=== PATIENT | female | born 1945 | race Caucasian/White ===

== ENCOUNTER → 2017-08-06 14:48 | Outpatient (CLI) | payer MEDICARE, OTHER, SELFPAY ==
--- NOTE | 2017-08-06 14:55 | XR_ITS ---
XR shoulder RT min 2V HISTORY: ITS.REASON: RT SHOULDER PAIN ORDERING PHYSICIAN: Timmy Alonzo MD PATIENT AGE: 72 years COMPARISON: FINDINGS: No fracture or dislocation. No lytic or blastic change. There is normal mineralization. The joint spaces are well-preserved. No significant degenerative/arthritic changes. No erosive changes evident. No significant subacromial stenosis IMPRESSION: Negative, no acute finding
== END ==
PROVIDERS: PCP Internal Medicine Adolescent Medicine; Visit Provider Internal Medicine Adolescent Medicine
DX: M25.511 Pain in right shoulder (principal)
CPT/HCPCS: 73030

== ENCOUNTER → 2018-11-04 16:47 | Outpatient (CLI) | payer MEDICARE, OTHER, SELFPAY ==
--- NOTE | 2018-11-04 16:55 | XR_ITS ---
XR foot LT min 3V HISTORY: ITS.REASON: LT FOOT PAIN ORDERING PHYSICIAN: Timmy Alonzo MD PATIENT AGE: 73 years COMPARISON: None FINDINGS: No fracture or dislocation. No lytic or blastic change. There is normal mineralization.. The joint spaces are well-preserved. No significant degenerative/arthritic changes. No erosive changes evident. IMPRESSION: Negative, no acute finding
== END ==
PROVIDERS: PCP Internal Medicine Adolescent Medicine; Visit Provider Internal Medicine Adolescent Medicine
DX: M79.672 Pain in left foot (principal)
CPT/HCPCS: 73630

== ENCOUNTER → 2018-12-04 13:59 | Outpatient (CLI) | payer MEDICARE, OTHER, SELFPAY | PROVIDERS: PCP Internal Medicine Adolescent Medicine; Visit Provider Internal Medicine Adolescent Medicine | DX: G47.30 Sleep apnea, unspecified (principal); I10 Essential (primary) hypertension; R40.0 Somnolence; R06.83 Snoring | CPT/HCPCS: G0399 ==

== ENCOUNTER → 2018-12-07 12:21 | Outpatient (CLI) | payer MEDICARE, OTHER, SELFPAY ==
--- NOTE | 2018-12-07 13:06 | XR_ITS ---
PROCEDURE: XR WRIST RT MIN 3V CLINICAL INDICATION: FALL RIGHT WRIST PAIN Posttraumatic pain COMPARISON: No exams were available for comparison FINDINGS: No definite acute fracture or dislocation is evident. There is a small calcific density anterior to the lunate on the lateral view and could represent periarticular calcification from degenerative change. There is some mild cystic changes in the lunate and there are osteoarthritic changes of the scapho trapezium joint IMPRESSION: No acute fracture. Degenerative changes Dictated by: Felice Galeano MD 12/07/2018 16:49 Electronically signed by Felice Galeano MD in [place] 12/07/2018 16:49
--- NOTE | 2018-12-07 13:06 | XR_ITS ---
PROCEDURE: XR KNEE RT 3V CLINICAL INDICATION: FALL RIGHT KNEE PAIN COMPARISON: No exams were available for comparison FINDINGS: No fracture or dislocation. No lytic or blastic change. There is normal mineralization. The joint spaces are well-preserved. No significant degenerative/arthritic changes. No erosive changes evident. Other findings:None. IMPRESSION: No acute findings. Dictated by: Felice Galeano MD 12/07/2018 16:49 Electronically signed by Felice Galeano MD in [place] 12/07/2018 16:49
--- NOTE | 2018-12-07 13:06 | XR_ITS ---
PROCEDURE: XR ELBOW RT MIN 3V CLINICAL INDICATION: RIGHT ELBOW PAIN Posttraumatic pain COMPARISON: No exams were available for comparison FINDINGS: No acute fracture or dislocation. Calcific density is present along both the lateral and medial epicondyle and may be due to old injuries. No displaced fat pad. Other findings:None. IMPRESSION: No acute finding. Old fractures versus old ligamentous injury at the medial and lateral epicondyle Dictated by: Felice Galeano MD 12/07/2018 16:47 Electronically signed by Felice Galeano MD in [place] 12/07/2018 16:47
== END ==
PROVIDERS: PCP Internal Medicine Adolescent Medicine; Visit Provider Internal Medicine Adolescent Medicine
DX: M25.531 Pain in right wrist (principal); M25.521 Pain in right elbow; M25.561 Pain in right knee; W19.XXXA Unspecified fall, initial encounter
CPT/HCPCS: 73080; 73110; 73562

== ENCOUNTER → 2019-12-06 14:42 | Outpatient (CLI) | payer MEDICARE, OTHER, SELFPAY ==
[2019-12-07 09:19] LABS: Covid-19 Nasal PCR Sendout UK Not Detected
== END ==
PROVIDERS: PCP Internal Medicine Adolescent Medicine; Visit Provider Nurse Practitioner
DX: Z03.818 Encounter for observation for suspected exposure to other biological agents ruled out (principal)
CPT/HCPCS: U0003

== ENCOUNTER 2020-02-05 12:58 | Emergency (ER) | payer MEDICARE, OTHER, SELFPAY ==
[2020-02-05 12:58] VITALS: BP 170/100; PULSE 84; RESP 17; TEMP 36.5; O2SAT 95; BMI 27.4
--- NOTE | 2020-02-05 13:16 | HMH.EDPSYCH ---
ED Disposition Clinical Impression: Depression Disposition: Home, Self-Care Condition on Discharge: Good Instructions: DI for Depression -- Adult Additional Instructions: Follow-up with therapist within the next 2 to 3 days for reevaluation. Return to the emergency department for any thoughts of hurting yourself or others. - Critical Care Critical Care Time: No Attestation: On 02/05/20, the high probability of a clinically significant, sudden or life threatening deterioration of the following system(s) required my full and direct attention, intervention and personal management. The time I documented below is in addition to time spent performing reported procedures but includes the following listed in this critical care notation. Medical Decision Making - Medical Records Medical records reviewed: Yes: I reviewed the patient's medical records. - Jonathan Inquiry Pt receiving controlled substance: No Vital Signs: 02/05/20 12:58 Temperature 97.7 F Temperature Source Temporal Artery Scan Pulse Rate [Right] 84 Respiratory Rate 17 Blood Pressure [Right Arm] 170/100 H Blood Pressure Mean [Right Arm] 123 02 Sat by Pulse Oximetry 95 Medical Decision Narrative: Patient is tearful, but not suicidal. Denies any medication overdoses. Patient appears sad and depressed, but is not currently a danger to herself or others. Sister agrees to help her follow-up with her therapist for further management and will continue to be a support system for the patient. Fingerstick is appropriate and vital signs are within acceptable limits. Patient denies any recent acute illnesses, discharged home with sister. Psych HPI - General Chief Complaint: Psychiatric Symptoms Stated Complaint: Panic attack, out of it Time Seen by Provider: 02/05/20 13:16 Mode of Arrival: Wheelchair Source of Information: Patient Limitations: No Limitations Description of Symptoms (Recalled from ER Triage Doc. by RN): Brought from family member saying she was very lethargic and fatigued. When speaking to pt she states she is Just so tired because hes so sick Pt states her is at home sick. Pt states she has been under an enormous amount of stress and is very depressed, denies SI or HI. Denies use of drugs or alcohol. - History of Present Illness HPI Narrative: This is a 74-year-old female with a past medical history significant for hypertension, hyperlipidemia, diabetes, GERD, anxiety who presents to the emergency department feeling tired because her has recently come home from the skilled nursing and requires a lot of care from the patient and her sister. She denies any chest pain, shortness of breath, fevers, vomiting, diarrhea, abdominal pain or urinary symptoms. She states that she just wants to go to sleep, but denies any suicidal or homicidal ideation on repeated questioning. She denies overdosing on any medications. She initially presents quite lethargic, but wakes up easily when we start discussing what has brought her here. Her sister is later allowed into the room and reiterates that she has been with her sister and there has been no medication overdose and she agrees that her sister is simply mentally overwhelmed with the burden of her . The patient is set up with psychiatric help and agrees to follow-up with her therapist, sister agrees to facilitate this. I have again asked both if there have been any thoughts of suicidal ideation and both the patient and sister deny that this has been the case. FSBS 127 - Related Data Home Medications Medication Instructions Recorded Confirmed aspirin 81 mg chewable tablet 81 mg PO DAILY 04/14/19 04/14/19 atorvastatin 40 mg tablet 40 mg PO DAILY tab 04/14/19 04/14/19 buspirone 15 mg tablet 15 mg PO HS tab 04/14/19 04/14/19 duloxetine 60 mg capsule,delayed mg PO 04/14/19 04/14/19 release levothyroxine 50 mcg tablet 50 mcg PO DAILY tab 04/14/19 04/14/19 lorazepam 1 mg tablet 1 m
[2020-02-05 15:02] VITALS: BP 137/84; PULSE 70; RESP 16; TEMP 36.6; O2SAT 98
[2020-03-04 13:46] LABS: POC Glucose,Bedside 127 (70-110)
== END 2020-02-05 15:03 | disposition home or self-care (01) ==
PROVIDERS: Emergency Provider Emergency Medicine; PCP Internal Medicine Adolescent Medicine
DX: F32.89 Other specified depressive episodes (principal); F43.22 Adjustment disorder with anxiety; I10 Essential (primary) hypertension; E78.5 Hyperlipidemia, unspecified; E11.9 Type 2 diabetes mellitus without complications; K21.9 Gastro-esophageal reflux disease without esophagitis; Z91.040 Latex allergy status; Z88.0 Allergy status to penicillin; Z88.5 Allergy status to narcotic agent; Z79.899 Other long term (current) drug therapy; Z90.49 Acquired absence of other specified parts of digestive tract; Z90.79 Acquired absence of other genital organ(s)
CPT/HCPCS: 82962; 99281

== ENCOUNTER → 2020-03-12 14:07 | Outpatient (CLI) | payer MEDICARE, OTHER, SELFPAY ==
--- NOTE | 2020-03-12 14:10 | MM_ITS ---
PROCEDURE: MM DIG SCREENING MAMM BI W/CAD Digital Breast Tomosynthesis Included CLINICAL INDICATION: SCREENING There is no personal or family history of breast cancer. Has been previous cyst aspiration on each breast with benign findings COMPARISON: MG MAMMO SCREENING DIGITAL TOMOSYNTHESIS BILATERAL W CAD from 04/13/2016 outside film TECHNIQUE: Standard CC and MLO images and 3D Tomosynthesis was obtained. R2 CAD reviewed. FINDINGS: Scattered fibroglandular densities are seen in both breasts on a primarily fatty breast parenchyma. There is a biopsy clip left breast. There are few benign appearing microcalcifications in each breast. There is minimal arterial calcification right breast. There is a mole marker upper medial right breast. There is a stable nodular density outer quadrant left breast likely intramammary node. There is no suspicious lesion in either breast no suspicious microcalcifications. IMPRESSION: Fibrofatty parenchyma with no suspicious lesions seen BI-RAD Category: 2 Benign Finding(s) FOLLOW-UP: 1YR 1 Year Follow-up (A letter has been sent to the patient regarding results of the study.) Dictated by: Dr. Ehsan Jane MD 03/24/2020 08:50 Dr. Ehsan Jane MD in [place] 03/24/2020 08:50
== END ==
PROVIDERS: PCP Internal Medicine Adolescent Medicine; Visit Provider Internal Medicine Adolescent Medicine
DX: Z12.31 Encounter for screening mammogram for malignant neoplasm of breast (principal)
CPT/HCPCS: 77063; 77067

== ENCOUNTER → 2020-09-29 09:34 | Outpatient (CLI) | payer MEDICARE, OTHER, SELFPAY ==
[2020-09-29 10:05] LABS: Basophils # 0.1 K/mm3 (0-0.2); Basophils % 1.1 % (0.1-2.0); Eosinophils # 0.2 K/mm3 (0.0-0.4); Eosinophils % 3.2 % (0.1-12.0); Hematocrit 43.8 % (37.0-47.0); Hemoglobin 14.8 g/dL (12.2-16.2); Lymphocytes # 2.2 K/mm3 (0.7-4.5); Lymphocytes % 35.3 % (10-50); Mean Corpuscular HGB Conc 33.9 g/dL (31.8-35.4); Mean Corpuscular Hemoglobin 28.5 pg (27.0-31.2); Mean Corpuscular Volume 84.2 fl (81-99); Mean Platelet Volume 7.7 fl (7.4-10.4); Monocytes # 0.4 K/mm3 (0.1-1.0); Monocytes % 6.9 % (1.7-9.3); Neutrophils # 3.3 K/mm3 (1.8-7.8); Neutrophils % 53.5 % (37.0-80.0); Platelet Count 238 K/mm3 (142-424); Red Cell Distribution Width 13.3 % (11.5-17.5); White Blood Count 6.2 K/mm3 (4.8-10.8)
[2020-09-29 10:25] LABS: Chloride 107 mmol/L (98-107); Sodium 140 mmol/L (136-145)
[2020-09-29 10:26] LABS: Potassium 4.3 mmoL/L (3.5-5.1)
[2020-09-29 10:28] LABS: Alanine Aminotransferase 27 U/L (12-78); Albumin Level 4.1 g/dl (3.5-5.0); Albumin/Globulin Ratio 1.4 (1.1-1.8); Alkaline Phosphatase 104 U/L (38-126); Anion Gap 16.3 mEq/L (5-15); Aspartate Amino Transferase 31 U/L (14-36); Bilirubin,Total 0.8 mg/dl (0.2-1.3); Blood Urea Nitrogen 23 mg/dl (7-17); Calcium 9.1 mg/dl (8.4-10.2); Carbon Dioxide 21 mmol/L (22.0-30.0); Cholesterol 163 mg/dl (140-200); Estimated Glomerular Filt Rate 70 ml/min (>60); GFR (African American) 85 ML/MIN (>60); Glucose 109 mg/dl (74-100); Total Protein,Serum 7.1 g/dl (6.3-8.2); Triglycerides 169 mg/dl (30-150); VLDL Cholesterol 34 mg/dL (0-40)
[2020-09-29 10:29] LABS: Chol/HDL Ratio 3.3 (1-3.5); HDL Cholesterol 50 mg/dl (40-60)
[2020-09-29 11:03] LABS: 25-OH Vitamin D, Total 38.9 ng/mL (30-100)
== END ==
PROVIDERS: Visit Provider Internal Medicine Adolescent Medicine
DX: E78.5 Hyperlipidemia, unspecified (principal); M81.0 Age-related osteoporosis without current pathological fracture
CPT/HCPCS: 36415; 80053; 80061; 82306; 83735; 85025

== ENCOUNTER → 2021-03-03 15:47 | Outpatient (CLI) | payer MEDICARE, OTHER, SELFPAY ==
--- NOTE | 2021-03-03 15:53 | XR_ITS ---
PROCEDURE: XR CHEST 2V CLINICAL HISTORY: COUGH, BILAT CHRONIC SEROUS OTITIS MEDIA COMPARISON: None FINDINGS: Thirteen 11 mm nodule is present in the right upper lobe anteriorly. Nodule is rounded in fairly well-circumscribed without definite calcification. Coronary artery calcifications are present. Mild left basilar atelectasis or fibrotic change. Moderate lumbar scoliosis convex left. IMPRESSION: 13 mm right upper lobe nodule. Chest CT with contrast suggested for further evaluation. Cardiomegaly with minimal left basilar atelectasis or scarring Dictated by: Felice Galeano MD 03/03/2021 16:53 Felice Galeano MD in [place] 03/03/2021 16:53
== END ==
PROVIDERS: PCP Internal Medicine Adolescent Medicine; Visit Provider Internal Medicine Adolescent Medicine
DX: R05.9 Cough, unspecified (principal); H65.23 Chronic serous otitis media, bilateral
CPT/HCPCS: 71046

== ENCOUNTER → 2021-03-18 12:26 | Outpatient (CLI) | payer MEDICARE, OTHER, SELFPAY ==
[2021-03-18 12:57] LABS: Blood Urea Nitrogen 22 mg/dl (7-17); Estimated Glomerular Filt Rate 61 ml/min (>60); GFR (African American) 74 ML/MIN (>60)
--- NOTE | 2021-03-18 13:04 | CT_ITS ---
PROCEDURE INFORMATION: Exam: CT Chest With Contrast; Diagnostic Exam date and time: 03/18/2021 1:04 PM Age: 75 years old Clinical indication: Condition or disease; Other: Nodules; Additional info: Pulmonary nodule TECHNIQUE: Imaging protocol: Diagnostic computed tomography of the chest with contrast. Radiation optimization: All CT scans at this facility use at least one of these dose optimization techniques: automated exposure control; mA and/or kV adjustment per patient size (includes targeted exams where dose is matched to clinical indication); or iterative reconstruction. Contrast material: ISOVUE; Contrast volume: 75 ml; Contrast route: IV; COMPARISON: CR XR CHEST 2V 03/03/2021 3:55 PM FINDINGS: Thyroid: There are thyroid nodules measuring up to 8 mm. Lungs: There is a well-circumscribed right upper lobe anterior 10 x 12 x 13 mm nodule. No additional nodules. No consolidation. Pleural spaces: Unremarkable. No pneumothorax. No pleural effusion. Heart: Unremarkable. No cardiomegaly. No pericardial effusion. Aorta: Unremarkable. No aortic aneurysm. Lymph nodes: Unremarkable. No enlarged lymph nodes. Liver: There are hypodense lesions within the liver. Density measurements are consistent with simple cysts, the largest measuring 2 cm. Spleen: There are irregular hypoenhancing lesions in the spleen, the largest measuring 4.3 cm. Kidneys and ureters: There is a 2 cm right upper pole simple renal cyst. Bones/joints: Unremarkable. No acute fracture. Soft tissues: Unremarkable. IMPRESSION: 1. 13 mm right upper lobe nodule corresponding to chest x-ray abnormality.For both low risk and high risk patients, consider CT Chest at 3 months, PET/CT, or biopsy. (Reference: Mihir) 2. Irregular masses within the spleen measuring up to 4.3 cm.Without or with history of cancer, recommend evaluation with non-emergent PET vs. MRI vs. biopsy. COMMENTS: 1. Consistent with the [employer]'s Incidental Findings Committee white paper (J Am Jignesh Radiol 2015): In patients aged 35 years and older with an incidental thyroid nodule equal to or greater than 1.[address], MRI or extrathyroidal US, further evaluation with dedicated thyroid US is recommended for patients with normal life expectancy and without comorbidities. For smaller nodules without suspicious features, no further evaluation or follow up is recommended. 2. Consistent with the [employer]'s Incidental Findings Committee white paper (J Am Jignesh Radiol 2018): Any incidental renal lesion less than 1 cm or classified as too small to characterize, or any incidental cystic renal lesion characterized as simple-appearing, is likely benign. No follow-up imaging is recommended for these lesions per consensus recommendations based on imaging criteria. REFERENCES: Mihir De La Rosa, et al. Guidelines for Management of Incidental Pulmonary Nodules Detected on CT Images: From the Fleischner Society 2017. Radiology. 2017;284(1):228-243.
== END ==
PROVIDERS: PCP Internal Medicine Adolescent Medicine; Visit Provider Internal Medicine Adolescent Medicine
DX: R91.1 Solitary pulmonary nodule (principal)
CPT/HCPCS: 36415; 71260; 82565; 84520; Q9967

== ENCOUNTER → 2021-04-05 15:44 | Outpatient (CLI) | payer MEDICARE, OTHER, SELFPAY | PROVIDERS: PCP Radiology Diagnostic Radiology; Visit Provider Nurse Practitioner | DX: Z20.822 Contact with and (suspected) exposure to COVID-19 (principal) | CPT/HCPCS: C9803; U0003; U0005 ==

== ENCOUNTER → 2021-09-12 15:28 | Outpatient (CLI) | payer MEDICARE, OTHER, SELFPAY ==
--- NOTE | 2021-09-12 15:32 | CT_ITS ---
FINAL REPORT TECHNIQUE: Axial images were obtained from the lung apex to the mid abdomen by computed tomography. Coronal reformatted images were obtained. This study was performed with techniques to keep radiation doses as low as reasonably achievable, (ALARA). Individualized dose reduction techniques using automated exposure control or adjustment of mA and/or kV according to the patient''s size were employed. CLINICAL HISTORY: LUNG NODULE COMPARISON: March 18, 2021 FINDINGS: There is no axillary adenopathy. There is no hilar or mediastinal adenopathy. Heart size is normal. There is no pericardial or pleural effusion. On the lung window images a 13 x 11 mm right upper lobe nodule is stable. There is mild scarring bilaterally. No new mass or nodule is identified. Limited images of the upper abdomen reveal postoperative changes from cholecystectomy. There are small nonobstructing left renal stones. There is a mass in the upper pole of the right kidney measuring 20 mm and is consistent with the cyst seen on the prior exam. There is a 14 cm cyst in the left hepatic lobe. A second mass superior to this on the prior exam has improved. The abnormal attenuation of the spleen is not visualized on these unenhanced images. IMPRESSION: Stable right upper lobe pulmonary nodule. Consider additional follow-up in 12 months. No new abnormality. Reviewed, Interpreted and Dictated by Héctor Haas III, MD Transcribed by Terra Hart Authenticated and [facility]
== END ==
PROVIDERS: PCP Radiology Diagnostic Radiology; Visit Provider Internal Medicine
DX: R91.1 Solitary pulmonary nodule (principal)
CPT/HCPCS: 71250

== ENCOUNTER → 2022-02-09 15:57 | Outpatient (CLI) | payer MEDICARE, OTHER, SELFPAY | LOC: SL 15:59 | PROVIDERS: PCP Internal Medicine Adolescent Medicine; Visit Provider Nurse Practitioner Family | DX: G47.33 Obstructive sleep apnea (adult) (pediatric) (principal); G47.09 Other insomnia; F39 Unspecified mood [affective] disorder; Z86.69 Personal history of other diseases of the nervous system and sense organs | CPT/HCPCS: G0399 ==

== ENCOUNTER → 2022-03-14 07:20 | Outpatient (CLI) | payer MEDICARE, OTHER, SELFPAY ==
--- NOTE | 2022-03-14 07:24 | CT_ITS ---
FINAL REPORT TECHNIQUE: Axial images were obtained from the lung apex to the mid abdomen by computed tomography. Coronal reformatted images were obtained. This study was performed with techniques to keep radiation doses as low as reasonably achievable, (ALARA). Individualized dose reduction techniques using automated exposure control or adjustment of mA and/or kV according to the patient''s size were employed. CLINICAL HISTORY: LUNG NODULE COMPARISON: September 12, 2021 and March 28, 2021 FINDINGS: There is no axillary adenopathy. There is no hilar or mediastinal adenopathy. Heart size is normal. There is no pericardial or pleural effusion. A nodule is again seen in the inferior right upper lobe measuring 14 x 11 mm and was previously 13 x 11 mm. It is uncertain if the slight difference in the measurement is secondary to imaging variation or slight interval growth. There is a 5 mm posterior left upper lobe nodule seen on image 24 which is stable since CT in March of 2021. There is mild pulmonary scarring. Limited images of the upper abdomen demonstrate a low-attenuation mass in the lateral segment of the left hepatic lobe measuring 16 mm and was 16 mm, stable. There is a 2nd, 12 mm mass in the inferomedial right hepatic lobe which is also stable since March 2021. These favor cysts or hemangiomas. There are less than 3 mm bilateral nonobstructing renal stones. There is a 20 mm probable cyst in the upper pole of the right kidney. There are postoperative changes from cholecystectomy. IMPRESSION: Possible slightly enlarged right upper lobe nodule versus imaging variation. Recommend additional follow-up chest CT in 6 months. Stable small left upper lobe nodule. Reviewed, Interpreted and Dictated by Héctor Haas III, MD Transcribed by Terra Hart Authenticated and . [facility]
== END ==
PROVIDERS: PCP Internal Medicine Adolescent Medicine; Visit Provider Internal Medicine
DX: R91.1 Solitary pulmonary nodule (principal)
CPT/HCPCS: 71250

== ENCOUNTER → 2022-04-08 10:33 | Outpatient (CLI) | payer MEDICARE, OTHER, SELFPAY | PROVIDERS: PCP Internal Medicine Adolescent Medicine; Visit Provider Internal Medicine Adolescent Medicine | DX: R30.0 Dysuria (principal); B95.2 Enterococcus as the cause of diseases classified elsewhere | CPT/HCPCS: 87086; 87088; 87186 ==

== ENCOUNTER → 2022-09-04 13:20 | Outpatient (CLI) | payer MEDICARE, OTHER, SELFPAY ==
--- NOTE | 2022-09-04 13:24 | CT_ITS ---
FINAL REPORT TECHNIQUE: Thin section axial images were obtained from the lung apices through the upper abdomen without contrast. This study was performed with techniques to keep radiation doses as low as reasonably achievable (ALARA). Individualized dose reduction techniques using automated exposure control or adjustment of mA and/or kV according to the patient's size were employed. CLINICAL HISTORY: LUNG NODULE COMPARISON: 03/14/2022 FINDINGS: There is a hypodense right thyroid lobe nodule which is stable. There is no mediastinal, hilar, or axillary lymphadenopathy. No pleural or pericardial effusion. There is a 14 mm, stable right upper lobe pulmonary nodule as well as a stable, 5 mm left upper lobe nodule. Bilateral lingular opacities are unchanged consistent with scarring. Limited imaging of the upper abdomen demonstrates a hypodense lesion in the left hepatic lobe which is stable. Previously mentioned right hepatic lesion is not included on this exam. There are nonobstructing renal stones in a hypodense right renal lesion which are also stable. There is no acute osseous abnormality. IMPRESSION: Stable bilateral pulmonary nodules. Stable hypodense left hepatic lobe lesion. Reviewed, Interpreted and Dictated by Romina Carvalho MD Transcribed by Alize Clarke Authenticated and [facility]
== END ==
LOC: RAD 13:20
PROVIDERS: PCP Internal Medicine Adolescent Medicine; Visit Provider Internal Medicine
DX: R91.1 Solitary pulmonary nodule (principal)
CPT/HCPCS: 71250

== ENCOUNTER → 2022-09-26 15:47 | Outpatient (CLI) | payer MEDICARE, OTHER, SELFPAY ==
[2022-09-26 16:16] LABS: Basophils # 0.1 K/mm3 (0-0.2); Basophils % 1.1 % (0.1-2.0); Eosinophils # 0.2 K/mm3 (0.0-0.4); Hematocrit 44.4 % (37.0-47.0); Hemoglobin 14.7 g/dL (12.2-16.2); Lymphocytes # 1.7 K/mm3 (0.7-4.5); Lymphocytes % 28.9 % (10-50); Mean Corpuscular HGB Conc 33.1 g/dL (31.8-35.4); Mean Corpuscular Hemoglobin 28.2 pg (27.0-31.2); Mean Corpuscular Volume 85.3 fl (81-99); Mean Platelet Volume 7.3 fl (7.4-10.4); Monocytes # 0.4 K/mm3 (0.1-1.0); Monocytes % 6.8 % (1.7-9.3); Neutrophils # 3.5 K/mm3 (1.8-7.8); Neutrophils % 59.2 % (37.0-80.0); Platelet Count 226 K/mm3 (142-424); Red Blood Count 5.21 M/mm3 (4.20-5.40); Red Cell Distribution Width 13.2 % (11.5-17.5); White Blood Count 5.9 K/mm3 (4.8-10.8)
[2022-09-26 16:55] LABS: Alanine Aminotransferase 37 U/L (12-78); Albumin/Globulin Ratio 1.3 (1.1-1.8); Alkaline Phosphatase 99 U/L (38-126); Anion Gap 14.4 mEq/L (5-15); Aspartate Amino Transferase 36 U/L (14-36); Bilirubin,Total 0.5 mg/dl (0.2-1.3); Blood Urea Nitrogen 19 mg/dl (7-17); Calcium 8.6 mg/dl (8.4-10.2); Carbon Dioxide 27 mmol/L (22.0-30.0); Chloride 104 mmol/L (98-107); Chol/HDL Ratio 3.1 (1-3.5); Cholesterol 168 mg/dl (140-200); Estimated Glomerular Filt Rate 81 ml/min (>60); GFR (African American) 98 ML/MIN (>60); Globulin 3.1 g/dL (1.3-3.2); Glucose 75 mg/dl (74-100); HDL Cholesterol 54 mg/dl (40-60); Potassium 4.4 mmoL/L (3.5-5.1); Sodium 141 mmol/L (136-145); Total Protein,Serum 7.1 g/dl (6.3-8.2); Triglycerides 218 mg/dl (30-150); VLDL Cholesterol 44 mg/dL (0-40)
[2022-09-26 17:06] LABS: Direct LDL Cholesterol 71.19 mg/dL (100-129)
[2022-09-26 17:12] LABS: 25-OH Vitamin D, Total 41.7 ng/mL (30-100)
[2022-09-26 17:26] LABS: Thyroid Stimulating Hormone 0.54 uIU/mL (0.465-4.68)
[2022-09-26 17:29] LABS: Ferritin 16.2 ng/ml (11.1-264)
[2022-09-26 18:19] LABS: Hemoglobin A1C 5.4 % (4.0-6.0)
== END ==
PROVIDERS: PCP Internal Medicine Adolescent Medicine; Visit Provider Nurse Practitioner Family
DX: E83.10 Disorder of iron metabolism, unspecified (principal); E78.5 Hyperlipidemia, unspecified; E11.9 Type 2 diabetes mellitus without complications; M81.0 Age-related osteoporosis without current pathological fracture
CPT/HCPCS: 36415; 80053; 80061; 82306; 82728; 83036; 84443; 85025

== ENCOUNTER → 2023-01-18 11:53 | Outpatient (CLI) | payer MEDICARE, OTHER, SELFPAY ==
--- NOTE | 2023-01-18 12:00 | XR_ITS ---
FINAL REPORT CLINICAL HISTORY: .pain COMPARISON: None FINDINGS: LEFT HIP: Two views of the left hip demonstrate no acute fracture or dislocation. Mild degenerative changes noted in the left hip. There is also mild degenerative change in the sacroiliac joints bilaterally. The visualized bony structures are well aligned. No soft tissue abnormality is seen. IMPRESSION: No acute bony abnormality. Mild degenerative change left hip and bilateral sacroiliac joints. Reviewed, Interpreted and Dictated by Héctor Haas III, MD Transcribed by Anastasia Danielle Authenticated and [facility]
--- NOTE | 2023-01-18 12:00 | XR_ITS ---
FINAL REPORT CLINICAL HISTORY: .pain COMPARISON: None FINDINGS: RIGHT HIP Two views of the right hip demonstrate no acute fracture or dislocation. Mild degenerative changes present in the hip. The visualized bony structures are well aligned. No soft tissue abnormality is seen. IMPRESSION: Mild degenerative change right hip Reviewed, Interpreted and Dictated by Héctor Haas III, MD Transcribed by Anastasia Danielle Authenticated and [facility]
--- NOTE | 2023-01-18 12:00 | XR_ITS ---
FINAL REPORT CLINICAL HISTORY: PAIN COMPARISON: None FINDINGS: 5 views of the lumbar spine were obtained. There is no evidence of fracture or dislocation. Levoscoliosis present. There is moderate degenerative change in the lumbar spine with facet osteoarthropathy in the lower lumbar spine in particular. Mild vascular calcifications are identified. No paraspinous soft tissue abnormalities identified. IMPRESSION: No acute bony abnormality. Levoscoliosis with moderate degenerative change as described. Reviewed, Interpreted and Dictated by Héctor Haas III, MD Transcribed by Anastasia Danielle Authenticated and [facility]
== END ==
PROVIDERS: PCP Internal Medicine Adolescent Medicine; Visit Provider Internal Medicine Adolescent Medicine
DX: M54.50 Low back pain, unspecified (principal); M25.552 Pain in left hip; M25.551 Pain in right hip
CPT/HCPCS: 72110; 73502

== ENCOUNTER 2023-03-02 14:00 | Outpatient (RCR) | payer MEDICARE, OTHER, SELFPAY ==
--- NOTE | 2023-02-14 16:00 | HMH.PTOPEV ---
PT Outpatient Evaluation Rehab PT Outpatient Evaluation Start: 02/14/23 12:59 Freq: Status: Active Protocol: Document 02/14/23 12:59 ANDREICHI (Rec: 02/14/23 16:00 BLADIMIR [id number]) E-signed By Laina Orta, PT Outpatient Therapy Subjective History Subjective History Pt is a 77 y/o female who reports onset of left posterior hip pain after a fall at the end of October. Pt reports she tripped over a sack of garbage and landed on her right elbow and right leg and she hurt her left hip somehow during the fall. Pt reports pain has improved since the fall. Pt reports pain often refers into the back of her leg to the knee, pt denies distal LE symptoms or paresthesia. Pt reports she iced the hip for a few weeks then had xrays of her hips and low back with findings of arthritis, pt denies known fractures. Pt reports she has been avoiding aggravating activities since the injury such as sitting flat on the left hip, prolonged walking, and stairs. Pt reports she takes Tyleonol as needed which does help improve pain. Pt reports she does have restrictions for no heavy lifting since birthing a 10# baby vaginally 46 years ago and having surgery after. Medical History: Vertigo, Fibromyalgia, Type II Diabetes controlled with diet, High cholesterol, Hypertension, PTSD, Anxiety, Insomnia New diagnosis of cancer in past 12 No months? Chief Complaint Pain Symptom Type Ache,Dull Symptoms Relieved By Rest/Positioning,OTC Meds Symptoms Aggravated By Standing,Bending/Stooping, Physical Activity,Twisting, Walking,Lifting Prior Functional Limitations None Current Functional Limitations Lifting,Housework,Standing, Squatting,Walking,Stairs, Bending/Stooping Symptom Description Constant but Variable Level of pain today (0-10) 5 Pain scale - at its best (0-10) 0 Pain scale - at its worst (0-10) 5 Lumbopelvic Eval Palapation tenderness bilateral buttock tenderness Yes: piriformis, glute med/min , greater trochanter Lumbar/Sacral Palpation Findings Tenderness Range of Motion Lumbar Spine Active Flexion Range of 65 Motion (degrees) Lumbar Spine Active Extension Range of 20 Motion (degrees) Left Lumbar Spine Lateral Flexion Active 20 Range of Motion (degrees) Right Lumbar Spine Lateral Flexion 20 Active Range of Motion (degrees) Manual Muscle Test Bilateral Knee Extension Strength Grade 5 Normal Knee Flexion Strength Grade 5 Normal Hip Flexion Strength Grade 5 Normal Hip Abduction Strength Grade 4 Good Hip Extension Strength Grade 4- Good- Ankle Dorsiflexion Strength Grade 5 Normal DTR Rt Patellar 3+ Lt Patellar 3+ Rt Gastroc/Soleus 2+ Lt Gastroc/Soleus 2+ Altered Sensation Bilateral Comment equal and intact to light touch sensation bilaterally Special Tests Hip Scouring (Quadrant) Test Negative Left Hip Brandt (MELODY) Test Negative Left Hip Piriformis Test Negative Left Sciatic Nerve Tension Test Negative Left Unilateral Straight Leg Raise (Lasegue) Negative Left Test Hip/Knee Eval ROM bilateral Hip External Rotation Active Range of 40 Motion (degrees) Hip Internal Rotation Active Range of 40 Motion (degrees) Lower Extremity Functional Index Activities Today, do you or would you have any difficulty at all with: a.Any of your usual work, housework or Moderate difficulty school activities b. Your usual hobbies, recreational or Moderate difficulty sporting activities c. Getting into or out of the bath Moderate difficulty d. Walking between rooms Moderate difficulty e. Putting on your shoes or socks Quite a bit of difficulty f. Squatting Quite a bit of difficulty g. Lifting an object, like a bag of Moderate difficulty groceries from the floor h. Performing light activities around Moderate difficulty your home i. Performing heavy activities around Quite a bit of difficulty your home j. Getting into or out of a car A little bit of difficulty k. Walking 2 blocks Quite a bit of difficulty l. Walking a mile Extreme difficulty or unable to perform activity m. Going up or down 10 stairs (about 1 Extreme difficulty or unable flight of stairs) to perform activity n. Standing for 1 hour Extreme difficulty or unable to perform activity o. Sitting for 1 hour A little bit of difficulty p. Running on even ground Extreme difficulty or unable to perform activity q. Running on uneven ground Extreme difficulty or unable to perform activity r. Making sharp turns while running fast Extreme difficulty or unable to perform activity s. Hopping Extreme difficulty or unable to perform activity t. Rolling over in bed No difficulty LEFI Score Lower Extremity Functional Index Score 26 Outpatient Therapy Assessment Impairments Problems/Impairmments Palpation Tenderness,Impaired Range of Motion,Impaired Strength,Impaired Walking, Impaired Standing,Impaired Sitting,Impaired Lifting, Impaired Household Care, Impaired Stair Climbing, Impaired Squatting,Impaired Bending,Subjective C/O Pain, Impaired Self Care/Self Management Prognosis Rehab Potential Good Clinical Impression Consistent with Diagnosis Yes Short Term Goals Number of Weeks 3 Improve LEFI Score Yes: Improve score to 36/80 to improve overall QOL Improve Self Care/Self Management Yes Patient to be Ind w/ HEP Yes Retirement Goals Number of Weeks 6 Increase Range of Motion Yes: Improve lumbar flex AROM to 80-90 degrees Increase Strength Yes: Improve LE MMT to 4+-5/5 grossly to assist with function Increase Ability to Walk Yes: 10' with pain 2-3/10 or less to assist with ADLs Improve Ability to Climb Stairs Yes: 1 flight with 1 HR reciprocally with pain 2-3/10 or less Improve LEFI Score Yes: Improve score to at least 50-60/80 to improve overall QOL Decrease Subjective C/O Pain Yes: Improve pain severity to 2-3/10 to improve overal QOL Patient to be Ind w/ Advanced HEP Yes Outpatient Therapy Plan of Care Treatment Plan May Include Therapeutic Exercise Including Home Yes Exercise Program Manual Therapy Techniques Yes Neuromuscular Re-education Yes Therapeutic Activities to Return to Yes Previous Functional/Work Level ADL/Self Care Education Yes Mechanical Traction Yes Dry Needling Yes Thermal Modalities Yes Electrical Stimulation Yes Ultrasound/Phonophoresis Yes Iontophoresis Yes Massage Yes Group Therapy for Medicare Yes Eval/Re-Eval Yes Frequency Times per week 2 Duration Number of Weeks 4-6 Addendums This patient is a candidate for social No or vocational rehab? Patient/Guardian verbally acknowledges Yes understanding of treatment program and consents to further treatment? Patient/Guardian verbally acknowledges Yes understanding of diagnosis, prognosis and goals for treatment? Eval Complexity PT Charges 95646 - Low Complexity Shoulder/Elbow Eval Shoulder Objective Measurements Elbow Objective Measurements PHYSICIAN CERTIFICATION: I certify the specified therapy services for Naheed Douglass are required, authorized, and reviewed every 30 days.
== END 2023-03-02 15:10 | disposition home or self-care (01) ==
LOC: PT 14:00
PROVIDERS: PCP Internal Medicine Adolescent Medicine; Visit Provider Internal Medicine Adolescent Medicine
DX: M25.552 Pain in left hip (principal); M19.90 Unspecified osteoarthritis, unspecified site
CPT/HCPCS: 97010; 97014; 97110; 97163; G0283

== ENCOUNTER 2023-06-14 16:01 | Outpatient (CLI) | payer MEDICARE, OTHER, SELFPAY ==
[2023-06-14 17:46] LABS: Ferritin 26.1 ng/ml (11.1-264)
== END 2023-06-14 23:59 ==
PROVIDERS: PCP Internal Medicine Adolescent Medicine; Visit Provider Nurse Practitioner Family
DX: E61.1 Iron deficiency (principal)
CPT/HCPCS: 36415; 82728

== ENCOUNTER 2023-09-06 13:20 | Outpatient (CLI) | payer MEDICARE, OTHER, SELFPAY ==
--- NOTE | 2023-09-06 13:23 | CT_ITS ---
FINAL REPORT TECHNIQUE: Axial CT images were performed from the lung apices through the upper abdomen. Coronal and sagittal reformats were submitted. This study was performed with techniques to keep radiation doses as low as reasonably achievable (ALARA). Individualized dose reduction techniques using automated exposure control or adjustment of mA and/or kV according to the patient's size were employed. CLINICAL HISTORY: LUNG NODULE COMPARISON: None FINDINGS: There is no axillary adenopathy. There is no hilar or mediastinal mass or adenopathy. Heart size is normal. There is no pericardial or pleural effusion. There is a 5 mm posterior left upper lobe nodule seen on image #27, stable. There is a 14 mm noncalcified nodule seen on image #41, which has been stable since 2022. Mild scarring remains present. No new nodules or masses are identified. The gallbladder has been surgically resected. There are several bilateral less than 3 mm renal stones present, nonobstructing, stable. There are low-attenuation hepatic masses and a low-attenuation focus in the upper pole of the right kidney that are also stable in appearance when compared to the prior CT. IMPRESSION: Stable 5 mm posterior left upper lobe nodule. 14 mm noncalcified nodule is also stable since 2022. Recommend 12-month follow-up CT chest to follow. Several bilateral less than 3 mm nonobstructing renal stones are present, stable. Reviewed, Interpreted and Dictated by Héctor Haas III, MD Transcribed by Anastasia Danielle Authenticated and [facility]
== END 2023-09-06 23:59 | disposition home or self-care (01) ==
LOC: RAD 13:20
PROVIDERS: PCP Internal Medicine Adolescent Medicine; Visit Provider Internal Medicine
DX: R91.1 Solitary pulmonary nodule (principal)
CPT/HCPCS: 71250